=== PATIENT | female | born 1985 | race Caucasian/White ===

== ENCOUNTER 2017-12-07 18:17 | Emergency (ER) | payer OTHER ==
[2017-12-07] MEDS ORDERED: Ketorolac Tromethamine 30 MG/ML VIAL ONE (19:11)
[2017-12-07] MEDS ORDERED: diphenhydrAMINE 50 MG/ML VIAL ONE (19:11)
[2017-12-07] MEDS ORDERED: Prochlorperazine 10 MG/2 ML VIAL ONE (19:11)
--- NOTE | 2017-12-07 19:37 | CT ---
CT OF THE BRAIN WITHOUT CONTRAST: 12/07/17 INDICATION: Headache, bilateral frontal regions and shinto regions. COMPARISON: None. FINDINGS: No acute infarct, hemorrhage or hydrocephalus is present. The septum pellucidum and third ventricle a re midline. Skull and extracranial soft tissues are within normal limits. IMPRESSION: No acute intracranial abnormality. POS: JILLIAN
== END 2017-12-07 20:52 | disposition home or self-care (01) ==
LOC: SCSER 18:17
DX: R51 Headache (principal); R11.0 Nausea; K21.9 Gastro-esophageal reflux disease without esophagitis; F32.9 Major depressive disorder, single episode, unspecified; Z79.899 Other long term (current) drug therapy
CPT/HCPCS: 70450; 85652; 96365; 96375; J0780; J1200; J1885

== ENCOUNTER 2017-12-09 20:39 | Emergency (ER) | payer OTHER ==
[2017-12-09] MEDS ORDERED: methylPREDNISolone Sod Succ/PF 125 MG/2 ML VIAL ONE ×2 (21:39→22:58)
[2017-12-09] MEDS ORDERED: Ketorolac Tromethamine 30 MG/ML VIAL ONE (21:39)
[2017-12-09] MEDS ORDERED: Promethazine HCl 25 MG/ML VIAL ONE (21:39)
[2017-12-09] MEDS ORDERED: Prochlorperazine 10 MG/2 ML VIAL ONE (21:59)
== END 2017-12-09 23:42 | disposition home or self-care (01) ==
LOC: SCSER 20:39
DX: M31.6 Other giant cell arteritis (principal); G43.909 Migraine, unspecified, not intractable, without status migrainosus; K21.9 Gastro-esophageal reflux disease without esophagitis; F32.9 Major depressive disorder, single episode, unspecified; Z79.899 Other long term (current) drug therapy; Z79.52 Long term (current) use of systemic steroids
CPT/HCPCS: 96374; 96375; 96376; J0780; J1885; J2550; J2930

== ENCOUNTER 2017-12-12 10:05 | Day surgery (SDC) | payer OTHER ==
[2017-12-11 17:53] VITALS: BMI 37.1
[~2017-12-12 10:05] MED LIST: Dexamethasone 20 MG/5 ML VIAL ONE; Lidocaine 1% PF 5 ML VIAL ONE; Ondansetron HCl/PF 4 MG/2 ML Vial ONE; PROPOFOL 200 MG/20 ML VIAL ONE
[2017-12-12] MEDS ORDERED: Midazolam HCl 2 mg/2 ml Vial ONE (12:22)
[2017-12-12] MEDS ORDERED: Propofol 500 MG/50 ML VIAL ONE (12:22)
[2017-12-12] MEDS ORDERED: Fentanyl 100 MCG/2 ML VIAL ONE ×2 (12:22→14:29)
[2017-12-12] MEDS ORDERED: Lidocaine 1% (PF) 30 ML VIAL ONE (12:27)
[2017-12-12] MEDS ORDERED: Lidocaine 2% Jelly 5 ML TUBE ONE (12:35)
--- NOTE | 2017-12-12 16:34 | OP ---
PREOPERATIVE DIAGNOSIS: Right temporal headaches. POSTOPERATIVE DIAGNOSIS: Right temporal headaches. PROCEDURE PERFORMED: Right temporal artery biopsy. PROCEDURE IN DETAIL: After consent was obtained, the patient was identified and brought to the opera ting room and placed on the operating table in supine position. Laryngeal mask anesthesia was obtain ed, the patient was positioned for surgery. The area of intended surgery was infiltrated with 1% lid ocaine without epinephrine. We then prepped and draped the area and used a Doppler to identify and d elineate the course of the artery. The artery was delineated and some of the superficial hair was tr immed from the skin. We then made an incision down through skin and subcutaneous tissues and down to the level of the temporalis fascia. Just beneath the fascia, we encountered the artery and removed a 5 cm segment of artery. Hemoclips were used to tie off either end of the artery and sent in formal in for permanent evaluation. The wound was then closed in layers with Monocryl for the deep layers a nd rapidly absorbing gut for the skin. Dermabond was then placed. The patient was taken to recovery room in stable condition prior to discharge home.
[2017-12-12] MEDS ORDERED: methylPREDNISolone Acetate 40 mg/ml Vial IM SCH (17:00)
== END 2017-12-12 17:20 | disposition home or self-care (01) ==
LOC: SDC 10:05
PROVIDERS: ATTEND Specialist
PROC: 03BS0ZX Excision of Right Temporal Artery, Open Approach, Diagnostic (ICD-10-PCS; principal; 2017-12-12)
DX: M31.6 Other giant cell arteritis (principal); M26.629 Arthralgia of temporomandibular joint, unspecified side; D64.9 Anemia, unspecified; K21.9 Gastro-esophageal reflux disease without esophagitis; F32.9 Major depressive disorder, single episode, unspecified; F41.9 Anxiety disorder, unspecified; Z79.899 Other long term (current) drug therapy; Z88.2 Allergy status to sulfonamides
CPT/HCPCS: 88305; 88313; 96372; 96374; J1030; J1100; J2001; J2250; J2405; J2704; J3010

== ENCOUNTER 2018-05-24 17:44 | Emergency (ER) | payer OTHER ==
--- NOTE | 2018-05-24 19:02 | RAD ---
CERVICAL SPINE FOUR VIEWS: 05/24/18 HISTORY: Neck injury. FINDINGS: Vertebral body heights and alignment are maintained. Cervicothoracic junction is intact. No acute fra cture or dislocation. IMPRESSION: No acute osseous abnormalities are demonstrated. POS: FAHAD
== END 2018-05-24 19:16 | disposition home or self-care (01) ==
LOC: SCSER 17:44
DX: M54.2 Cervicalgia (principal); K21.9 Gastro-esophageal reflux disease without esophagitis; F32.9 Major depressive disorder, single episode, unspecified; Z79.899 Other long term (current) drug therapy; V43.92XA Unspecified car occupant injured in collision with other type car in traffic accident, initial encounter
CPT/HCPCS: 72040

== ENCOUNTER 2018-08-10 08:39 | Emergency (ER) | payer OTHER ==
[2018-08-10] MEDS ORDERED: diphenhydrAMINE 50 MG/ML VIAL ONE (09:21)
[2018-08-10] MEDS ORDERED: Metoclopramide HCl 10 MG/2 ML VIAL ONE (09:21)
[2018-08-10] MEDS ORDERED: Ketorolac Tromethamine 30 MG/ML VIAL ONE (09:21)
[2018-08-10] MEDS ORDERED: Magnesium 2 GM/50 ML BAG (IN WATER) ONE (10:27)
[2018-08-10] MEDS ORDERED: methylPREDNISolone Sod Succ/PF 125 MG/2 ML VIAL ONE (10:27)
== END 2018-08-10 11:40 | disposition home or self-care (01) ==
LOC: ERS 08:39
DX: G43.909 Migraine, unspecified, not intractable, without status migrainosus (principal); K21.9 Gastro-esophageal reflux disease without esophagitis; F32.9 Major depressive disorder, single episode, unspecified; Z79.899 Other long term (current) drug therapy
CPT/HCPCS: 96365; 96367; 96375; J1200; J1885; J2765; J2930

== ENCOUNTER 2019-04-16 09:30 | Outpatient (CLI) | payer OTHER ==
--- NOTE | 2019-04-16 10:58 | MRI ---
Brain MRI with and without contrast: 04/16/2019 COMPARISON: None HISTORY: Headaches TECHNIQUE: Multiplanar multisequence MR imaging of the brain obtained with and without contrast FINDINGS: The diffusion weighted imaging demonstrates no evidence for acute infarction. The axial gradient echo imaging demonstrates no evidence for intracranial hemorrhage. No midline shift or mass effect is seen. There is no ventricular enlargement. Arterial flow voids at the axial level of the skull base appear unremarkable on the T2-weighted imaging. There is a cluster of subcentimeter foci of increased T2 and FLAIR signal within the subcortical and deep white matter of the left frontal region, with 4-5 small foci measuring up to 5 mm. No enhancement is seen in this region. There is no mass effect. No additional foci of abnormal signal in tensity identified within the white matter. IMPRESSION: There is a nonspecific cluster of subcentimeter foci of increased T2 and FLAIR signal wit hin the subcortical and deep white matter of the left frontal lobe as detailed above. Perhaps this is related to an area of prior insult on the basis of prior ischemia or trauma. An atypical appearanc e of vasculitis or demyelinating disease is a less likely possibility. In order to exclude underlying neoplasia, short-term follow-up imaging in 3-6 months advised.
== END 2019-04-16 09:31 | disposition home or self-care (01) ==
LOC: BICMRI 09:30
PROVIDERS: ATTEND Family Medicine
DX: R51 Headache (principal)
CPT/HCPCS: 70553

== ENCOUNTER 2019-04-30 10:31 | Outpatient (CLI) | payer OTHER ==
--- NOTE | 2019-04-30 13:10 | ULT ---
RENAL ULTRASOUND: HISTORY: Hematuria. FINDINGS: Exam is somewhat limited due to body habitus. The right kidney measures 11.4 cm in length. There is mild right hydronephrosis. The left kidney measures 10.5 cm in length. The left kidney is unremarkable. The urinary bladder is distended and appears unremarkable. Pre-void bladder volume is recorded at 21 2 mL. Post-void bladder volume is recorded at 23 mL. IMPRESSION: Mild fullness of the right renal collecting structures, suggesting mild hydro. The renal ultrasound e xamination is otherwise unremarkable. POS: FAHAD
== END 2019-04-30 10:32 | disposition home or self-care (01) ==
LOC: BICULT 10:31
PROVIDERS: ATTEND Urology
DX: R31.29 Other microscopic hematuria (principal)
CPT/HCPCS: 76770

== ENCOUNTER 2019-05-07 08:08 | Outpatient (CLI) | payer OTHER ==
--- NOTE | 2019-05-07 10:38 | CT ---
CT ABDOMEN WITH AND WITHOUT CONTRAST: CT PELVIS WITH AND WITHOUT CONTRAST: HISTORY: Possible hydronephrosis. History of cystitis and urinary tract infection. COMPARISON: None. FINDINGS: ABDOMEN: The lung bases are clear. Normal heart size. No significant pericardial effusion. The descen ding thoracic aorta and abdominal aorta have a normal caliber. No periaortic fat stranding. Surgically absent gallbladder. Portal vein is patent. Liver, spleen, pancreas and adrenal glands have appropriate attenuation and enhancement. Minimal calc ification of the medial limb of the right adrenal gland. No gastrohepatic, retrocrural or periportal lymphadenopathy. There are a few scattered nonspecific, nonenlarged mesenteric lymph nodes. No mesenteric mass, free a ir or free fluid. Limited evaluation of the alimentary canal due to lack of oral contrast administration. No evidence o f bowel obstruction. The ileocecal junction is unremarkable. Normal caliber appendix. Scattered fecal material in a nondistended, nondilated colon. Diverticulosis without evidence of diverticulitis. There is no evidence of hydronephrosis, nephrolithiasis or perinephric fat stranding on the noncontra st images. The arterial phase images demonstrate symmetric enhancement of the kidneys. There are no e nhancing masses. Subcentimeter hypodensities in the left renal cortex are too small to characterize b ut are statistically favored to be cysts. The largest hypodensity measures 0.7 cm and has an attenuat ion coefficient of 7 Hounsfield units. There is evidence of a small right extrarenal pelvis. No signi ficant dilatation. On the delayed images there is symmetric excretion into the left and right intrare nal collecting system. Both intrarenal collecting systems are decompressed. Bilateral ureters have ap propriate attenuation. No evidence of ureterolithiasis, hydroureter or periureteral fat stranding. Co ntrast opacifies both ureters on the delayed images without filling defect. PELVIS: The urinary bladder is unremarkable. No filling defects in the dependent portion of the bladd er, which is filled with contrast. No pelvic mass, lymphadenopathy, free air or free fluid. The uterus and adnexal structures are unrema rkable. OSSEOUS STRUCTURES: There are no lytic or blastic lesions within the osseous structures. RIGHT BREAST: There is an incompletely evaluated, 2.6 cm, isodense mass with an attenuation coefficie nt of 27 Hounsfield units on the noncontrast images, 40 Hounsfield units on the arterial phase images and 51 Hounsfield units on the delayed images. The mass is well circumscribed and may represent a fi broadenoma. Better interrogation with a bilateral breast mammogram and right breast ultrasound is rec ommended. IMPRESSION: 1. No evidence of hydronephrosis. 2. Right external pelvis is noted. 3. Hypodensities in the left kidney which are too small to characterize but are statistically favored to be cysts. 4. Unremarkable left and right ureter. 5. Normal caliber appendix. 6. Unremarkable urinary bladder. 7. Right breast mass, as described above. Better interrogation with bilateral breast mammogram and ri ght breast ultrasound is recommended. CODE T POS: OFF
[2019-05-07] MEDS ORDERED: Iopamidol 370 76% 100 ML VIAL ONE (14:51)
== END 2019-05-07 08:09 | disposition home or self-care (01) ==
LOC: CT 08:08
PROVIDERS: ATTEND Urology
DX: N30.10 Interstitial cystitis (chronic) without hematuria (principal); N13.39 Other hydronephrosis; K76.89 Other specified diseases of liver; N63.10 Unspecified lump in the right breast, unspecified quadrant
CPT/HCPCS: 74178; Q9967

== ENCOUNTER 2019-05-21 08:50 | Outpatient (CLI) | payer OTHER ==
--- NOTE | 2019-05-21 11:54 | MMO ---
Bilateral MAMMO Bilat Diag [facility]. CLINICAL HISTORY: Patient is 33 years old and is seen for diagnostic exam. The patient has no family history of breast cancer. The patient has no personal history of cancer. VIEWS: The views performed were: bilateral craniocaudal with tomosynthesis; bilateral mediolateral oblique with tomosynthesis; bilateral mediolateral with tomosynthesis; left craniocaudal; and left mediolateral. FILMS COMPARED: The present examination has been compared to a prior imaging study performed at [facility] on 05/21/2019. This study has been interpreted with the assistance of computer-aided detection. MAMMOGRAM FINDINGS: There are scattered fibroglandular densities. There is an oval mass at the 6 o'clock position of the right breast measuring 2.5cm with punctate internal calcifications. Focused ultrasound reveals a solid mass, biopsy is recommended. There is an asymmetric density in the upper outer right breast. Focused ultrasound demonstrates a non-specific hypoechoic solid lesion measuring 9mm. Biopsy is recommended. There is a mildly dilated duct in the left retroareolar region. There is an asymmetric density within the upper outer left breast with no sonographic correlate. Recommend follow up diagnostic mammogram in 6 months. IMPRESSION: FINDING IN THE RIGHT BREAST IS SUSPICIOUS. BIOPSY IS RECOMMENDED. Recommend biopsy of both masses with the right breast. Recommend 6 month follow up diagnostic mammogram of the left breast upper outer asymmetric density. THE RESULTS OF THIS EXAM WERE SENT TO THE PATIENT. ACR BI-RADS Category 4 - Suspicious abnormality - biopsy should be considered MAMMOGRAPHY NOTE: 1. A negative mammogram report should not delay a biopsy if a dominant of clinically suspicious mass is present. 2. Approximately 10% to 15% of breast cancers are not detected by mammography. 3. Adenosis and dense breasts may obscure an underlying neoplasm. Reported by: CHRISTOFER MARIEE MD Electonically Signed: [id number]
--- NOTE | 2019-05-21 13:18 | ULT ---
BILATERAL BREAST ULTRASOUND: 05/21/2019 HISTORY: Abnormal CT examination demonstrated a mass within the right breast on 05/07/2019 thus bilateral diag nostic mammography was performed. Diagnostic mammography demonstrates asymmetric density in the bilateral upper outer quadrants as well as a round mass in the left retroareolar region and an oval 2.5 cm mass within the inferior right br east. COMPARISON: None. FINDINGS: At the 6 o'clock position of the right breast inferiorly there is a nonspecific heterogeneously hypoe choic, solid lesion with punctate internal calcifications measuring 2.7 x 0.9 x 2.2 cm. This correlat es with the lesion seen on prior CT. In the upper outer right breast there is a nonspecific angulated, hypoechoic mass measuring approxima tely 5 x 10 x 7 mm, correlating with the asymmetric density in the upper outer right breast seen on m ammography. Posterior to the nipple there are a few mildly prominent ducts, benign in nature. No sonographic correlate is seen for the asymmetric density within the upper outer aspect of the left breast. IMPRESSION: BI-RADS 4 - suspicious abnormality. Recommend ultrasound guided core biopsy of the upper outer right breast mass and the inferior right b reast mass at the 6 o'clock position. With respect to the findings on the left a follow-up diagnostic mammogram in six months is advised. CODE T POS: OFF
== END 2019-05-21 08:51 | disposition home or self-care (01) ==
LOC: BICMAMMO 08:50
PROVIDERS: ATTEND Family Medicine
DX: N63.10 Unspecified lump in the right breast, unspecified quadrant (principal)
CPT/HCPCS: 77066; G0279

== ENCOUNTER 2019-05-23 19:30 | Outpatient (CLI) | payer OTHER | END 2019-05-23 19:31 | disposition home or self-care (01) | LOC: SLEEPLAB 19:30 | PROVIDERS: ATTEND Family Medicine | DX: G47.33 Obstructive sleep apnea (adult) (pediatric) (principal); R53.83 Other fatigue; E66.9 Obesity, unspecified; F41.9 Anxiety disorder, unspecified; F32.9 Major depressive disorder, single episode, unspecified | CPT/HCPCS: 95811 ==

== ENCOUNTER → 2019-05-26 | Day surgery (SDC) | payer OTHER ==
--- NOTE | 2019-05-26 14:18 | ULT ---
ULTRASOUND GUIDED CORE BIOPSY RIGHT BREAST 10 O'CLOCK POSITION: ULTRASOUND GUIDED CORE BIOPSY RIGHT BREAST 6 O'CLOCK POSITION: 05/26/2019 HISTORY: Two masses are noted within the right breast for which ultrasound guided core biopsy was recommended. FINDINGS: Informed consent obtained prior to the procedure. The skin overlying the right breast at the 10 o'clock and 6 o'clock positions was prepped and draped in the normal sterile fashion and initially the skin was anesthetized over the 10 o'clock position. T he oval. nonspecific, hypoechoic lesion noted on prior examination at the 10 o'clock position is agai n noted. With direct sonographic guidance, three 12 gauge core biopsies were obtained of this mass an d a post biopsy clip was placed. Then the skin overlying the 6 o'clock position was anesthetized with 1% buffered Lidocaine. The 2.8 x 1.1 cm hypoechoic mass was again visualized. Three 12 gauge core bi opsies were obtained. A post biopsy clip was placed. Both post biopsy clips were confirmed to be in a proper position with post biopsy mammography. The patient tolerated the procedure well. IMPRESSION: Successful ultrasound guided core biopsy of masses within the right breast, one at the 6 o'clock posi tion and one at the 10 o'clock position. POS: OFF
--- NOTE | 2019-05-26 14:42 | MMO ---
Right Breast MAMMO Unilat Diag [facility]. CLINICAL HISTORY: Patient is 33 years old and is seen for breast biopsy. The patient has no family history of breast cancer. The patient has no personal history of cancer. VIEWS: The views performed were: right craniocaudal and right mediolateral oblique. FILMS COMPARED: The present examination has been compared to a prior imaging study performed at [facility] on 05/21/2019. This study has been interpreted with the assistance of computer-aided detection. MAMMOGRAM FINDINGS: There are scattered fibroglandular densities. There are two post-biopsy clips in proper location, one at the 10 oc'clock position and one at the 6 o'clock position. Pathology pending. IMPRESSION: FINDING IN THE RIGHT BREAST IS SUSPICIOUS. BIOPSY IS RECOMMENDED. US guided core biopsy has been performed and pathology is pending. THE RESULTS OF THIS EXAM WERE SENT TO THE PATIENT. ACR BI-RADS Category 4 - Suspicious abnormality - biopsy should be considered MAMMOGRAPHY NOTE: 1. A negative mammogram report should not delay a biopsy if a dominant of clinically suspicious mass is present. 2. Approximately 10% to 15% of breast cancers are not detected by mammography. 3. Adenosis and dense breasts may obscure an underlying neoplasm. Reported by: CHRISTOFER MARIEE MD Electonically Signed: [id number]
== END ==
LOC: BICULT 12:47
PROVIDERS: ATTEND Family Medicine
PROC: 0H9T3ZX Drainage of Right Breast, Percutaneous Approach, Diagnostic (ICD-10-PCS; principal; 2019-05-26)
DX: D24.1 Benign neoplasm of right breast (principal); N60.91 Unspecified benign mammary dysplasia of right breast; Z88.2 Allergy status to sulfonamides; Z88.8 Allergy status to other drugs, medicaments and biological substances
CPT/HCPCS: 19083; 19084; 88305; 88341; 88342

== ENCOUNTER 2019-06-26 09:36 | Emergency (ER) | payer OTHER ==
[2019-06-26] MEDS ORDERED: Ketorolac Tromethamine 30 MG/ML VIAL ONE (09:52)
== END 2019-06-26 10:10 | disposition home or self-care (01) ==
LOC: SCSER 09:36
DX: M25.511 Pain in right shoulder (principal); M25.512 Pain in left shoulder; K21.9 Gastro-esophageal reflux disease without esophagitis; F41.9 Anxiety disorder, unspecified; F32.9 Major depressive disorder, single episode, unspecified; Z79.899 Other long term (current) drug therapy; V49.9XXA Car occupant (driver) (passenger) injured in unspecified traffic accident, initial encounter
CPT/HCPCS: 96372; 99283; J1885

== ENCOUNTER 2019-07-02 06:46 | Day surgery (SDC) | payer OTHER ==
[2019-07-02] MEDS ORDERED: Bupivacaine 0.25% HCL 30 ML VIAL ONE (06:52)
[2019-07-02] MEDS ORDERED: Lidocaine 1% w/Epinephrine 1:100K 20 ML VIAL ONE (06:52)
[2019-07-02 08:10] LABS: #Eosinphils 0.2 thou/uL (0.0-0.7); #Lymphocytes 1.2 thou/uL (1.20-3.40); #Monocytes 0.4 thou/uL (0.11-0.59); #Neutrophils 3.9 thou/uL (1.40-6.50); %Basophils 0.3 % (0.0-1.0); %Eosinophils 3.1 % (0.0-10.0); %Lymphocytes 20.9 % (21.0-51.0); %Monocytes 7.6 % (0.0-10.0); %Neutrophils 68.2 % (42.0-75.0); Hemoglobin 12.3 g/dL (12.0-16.0); Mean Corpuscular HGB CONC 32.6 g/dL (32.0-36.0); Mean Corpuscular Hemoglobin 26.1 pg (27.0-31.0); Mean Corpuscular Volume 80.2 fL (78.0-98.0); Mean Platelet Volume 7.3 fL (7.4-10.4); Platelet Count 325 thou/uL (130-400); Red Blood Cell (RBC) Count 4.72 mill/uL (4.20-5.40); White Blood Cell (WBC) Count 5.7 thou/uL (4.8-10.8)
[2019-07-02 08:20] LABS: BHCG - Serum Negative (NEGATIVE); Pregs Control Background? CLEAR/WHITE (CLR/WHITE); Pregs Control Bar Appear? YES (CONTROL BAR)
[2019-07-02] MEDS ORDERED: Midazolam HCl 2 mg/2 ml Vial ONE (08:23)
[2019-07-02 08:24] LABS: Anion Gap 10 mmol/L (10-20); BUN (Urea Nitrogen) 6 mg/dL (7.0-18.7); Calc. Creatinine Clearance 0 mL/min (70-130); Calcium 9.4 mg/dL (7.8-10.44); Carbon Dioxide 26 mmol/L (22-29); Chloride 105 mmol/L (98-107); Estimated GFR-MDRD 81; Glucose 102 mg/dL (70-105); Potassium 4.1 mmol/L (3.5-5.1); Sodium 137 mmol/L (136-145)
[2019-07-02] MEDS ORDERED: Fentanyl 100 MCG/2 ML VIAL ONE (08:24)
--- NOTE | 2019-07-02 10:02 | MMO ---
Mammographic guided needle localization right breast mass and localization clip Surgical specimen mammography right breast mass HISTORY: Right breast mass with positive pathology. FINDINGS: After explaining the procedure and answering all questions, the mass and localization clip at the superior lateral aspect of the right breast was again visualized. Sterile technique, buffered local anesthesia, mammographic guidance, and a superior approach were used to carefully adva nce a 5 cm [place] needle and wire to the posterior margin of the mass, with the hook deployed anteriorly. The mass is centered 1.8 cm from the needle tip. Images were marked. Surgical specimen mammography shows the localization clip, wire, and mass overlying the tissue specim en. Findings were called to Dr. Webb in the OR at the time of the exam. IMPRESSION: Technically successful needle localization right breast mass.
[2019-07-02] MEDS ORDERED: Dexamethasone 20 MG/5 ML VIAL ONE (12:01)
[2019-07-02] MEDS ORDERED: Ondansetron PF 4 MG/2 ML Vial ONE (12:01)
[2019-07-02] MEDS ORDERED: Metoclopramide HCl 10 MG/2 ML VIAL ONE (12:01)
[2019-07-02] MEDS ORDERED: PROPOFOL 200 MG/20 ML VIAL ONE (12:01)
[2019-07-02] MEDS ORDERED: Lidocaine 1% PF 5 ML VIAL ONE (12:01)
== END 2019-07-02 11:55 | disposition home or self-care (01) ==
LOC: SDC 06:46
PROVIDERS: ATTEND Surgery
PROC: 0HBT0ZZ Excision of Right Breast, Open Approach (ICD-10-PCS; principal; 2019-07-02)
DX: N62 Hypertrophy of breast (principal); F41.9 Anxiety disorder, unspecified; F32.9 Major depressive disorder, single episode, unspecified; K21.9 Gastro-esophageal reflux disease without esophagitis; D64.9 Anemia, unspecified; J30.2 Other seasonal allergic rhinitis; Z79.899 Other long term (current) drug therapy; Z88.2 Allergy status to sulfonamides; Z88.8 Allergy status to other drugs, medicaments and biological substances
CPT/HCPCS: 19281; 36415; 76098; 80048; 84703; 85025; 88307; J0131; J0690; J1100; J2001; J2250; J2405; J2704; J2765; J3010; S0020

== ENCOUNTER 2020-09-26 10:25 | Outpatient (CLI) | payer OTHER | END 2020-09-26 10:26 | disposition home or self-care (01) | LOC: BICMRI 10:25 | PROVIDERS: ATTEND Internal Medicine Hematology & Oncology | DX: N60.89 Other benign mammary dysplasias of unspecified breast (principal); D50.0 Iron deficiency anemia secondary to blood loss (chronic) | CPT/HCPCS: A9577; C8908 ==

== ENCOUNTER 2020-11-11 08:11 | Outpatient (CLI) | payer OTHER ==
[2020-11-11 21:04] LABS: SARS-CoV-2 PCR by NAA Not Detected (NotDetected)
== END 2020-11-11 08:12 | disposition home or self-care (01) ==
LOC: LABBT 08:11
PROVIDERS: ATTEND Internal Medicine Gastroenterology
DX: Z01.812 Encounter for preprocedural laboratory examination (principal); K21.9 Gastro-esophageal reflux disease without esophagitis; Z20.822 Contact with and (suspected) exposure to COVID-19
CPT/HCPCS: 87635; U0003; U0005

== ENCOUNTER 2020-11-15 08:47 | Day surgery (SDC) | payer OTHER ==
[2020-11-14 10:37] VITALS: BMI 38.9
[2020-11-15 10:01] LABS: Pregnancy Test - Urine (BHCG) Negative (Negative); Pregu Control Background? CLEAR/WHITE (CLR/WHITE); Pregu Control Bar Appear? YES (CONTROL BAR); Specific Gravity 1.017 (1.002-1.036)
[2020-11-15] MEDS ORDERED: PROPOFOL 200 MG/20 ML VIAL ONE (10:37)
== END 2020-11-15 12:40 | disposition home or self-care (01) ==
LOC: SDC 08:47
PROVIDERS: ATTEND Internal Medicine Gastroenterology
PROC: 0D757ZZ Dilation of Esophagus, Via Natural or Artificial Opening (ICD-10-PCS; principal; 2020-11-15)
PROC: 0DB58ZX Excision of Esophagus, Via Natural or Artificial Opening Endoscopic, Diagnostic (ICD-10-PCS; principal; 2020-11-15)
DX: K31.7 Polyp of stomach and duodenum (principal); K21.9 Gastro-esophageal reflux disease without esophagitis; E66.9 Obesity, unspecified; Z68.38 Body mass index [BMI] 38.0-38.9, adult; Z79.899 Other long term (current) drug therapy; Z88.2 Allergy status to sulfonamides; Z88.8 Allergy status to other drugs, medicaments and biological substances
CPT/HCPCS: 81025; 88305; J2704

== ENCOUNTER 2021-05-15 09:40 | Outpatient (CLI) | payer OTHER | END 2021-05-15 09:41 | disposition home or self-care (01) | LOC: BICMAMMO 09:40 | PROVIDERS: ATTEND Internal Medicine Hematology & Oncology | DX: N60.89 Other benign mammary dysplasias of unspecified breast (principal) | CPT/HCPCS: 77066; A9577; C8908; G0279 ==

== ENCOUNTER 2021-05-23 19:27 | Emergency (ER) | payer OTHER ==
[2021-05-23] MEDS ORDERED: Ketorolac Tromethamine 30 MG/ML VIAL ONE (19:52)
[2021-05-23] MEDS ORDERED: Acetaminophen 500 MG TAB ONE (19:52)
== END 2021-05-23 20:50 | disposition home or self-care (01) ==
LOC: ERS 19:27
DX: S39.012A Strain of muscle, fascia and tendon of lower back, initial encounter (principal); K21.9 Gastro-esophageal reflux disease without esophagitis; Z79.899 Other long term (current) drug therapy; W22.8XXA Striking against or struck by other objects, initial encounter
CPT/HCPCS: 72100; 96372; J1885

== ENCOUNTER 2022-05-16 09:54 | Outpatient (CLI) | payer OTHER | END 2022-05-16 09:55 | disposition home or self-care (01) | LOC: BICMAMMO 09:54 | PROVIDERS: ATTEND Internal Medicine Hematology & Oncology | DX: Z12.31 Encounter for screening mammogram for malignant neoplasm of breast (principal) | CPT/HCPCS: 77063; 77067 ==

== ENCOUNTER 2023-03-27 12:31 | Outpatient (CLI) | payer OTHER | END 2023-03-27 12:32 | disposition home or self-care (01) | LOC: BICULT 12:31 | PROVIDERS: ATTEND Internal Medicine Nephrology | DX: N18.1 Chronic kidney disease, stage 1 (principal) | CPT/HCPCS: 76770 ==

== ENCOUNTER 2023-05-22 12:01 | Emergency (ER) | payer OTHER ==
[2023-05-22 14:55] LABS: Bacteria/HPF None Seen HPF (None Seen); Bilirubin Negative (Negative); Blood, Urine Negative (Negative); CAUTI Indications for Culture Pregnancy; Clarity Clear (Clear); Glucose, Urine (Dipstick) Normal (Negative); Ketone, Urine Negative (Negative); Leukocyte Negative Leu/uL (Negative); Nitrite Negative (Negative); Protein, Urine (Dipstick) Negative (Neg-Trace); RBC/HPF 0-3 HPF (0-3); Specific Gravity, Urine 1.009 (1.002-1.036); Squamous Epithelial 0-3 HPF (0-3); Urobilinogen Normal mg/dL (Less than 2); WBC/HPF None Seen HPF (0-3)
[2023-05-22 14:58] LABS: Urine Culture Reflex Yes Yes
== END 2023-05-22 15:32 | disposition home or self-care (01) ==
LOC: ERS 12:01
DX: O20.8 Other hemorrhage in early pregnancy (principal); O99.611 Diseases of the digestive system complicating pregnancy, first trimester; K21.9 Gastro-esophageal reflux disease without esophagitis; Z3A.01 Less than 8 weeks gestation of pregnancy
CPT/HCPCS: 76801; 81001; 87086

== ENCOUNTER 2023-07-31 09:23 | Outpatient (CLI) | payer OTHER | END 2023-07-31 09:24 | disposition home or self-care (01) | LOC: BICMAMMO 09:23 | PROVIDERS: ATTEND Advanced Practice Midwife | DX: N63.10 Unspecified lump in the right breast, unspecified quadrant (principal); D24.1 Benign neoplasm of right breast | CPT/HCPCS: 77066; G0279 ==

== ENCOUNTER 2024-03-26 10:36 | Day surgery (SDC) | payer OTHER ==
[2024-03-25 12:45] VITALS: BMI 38.7
[2024-03-26] MEDS ORDERED: fentaNYL 50 mcg/mL 1 mL Vial ONE ×2 (11:20→13:56)
[2024-03-26] MEDS ORDERED: Bupivacaine PF 0.5% 30 ML VIAL ONE (11:20)
[2024-03-26] MEDS ORDERED: Midazolam HCl 2 mg/2 ml Vial ONE (11:20)
[2024-03-26] MEDS ORDERED: EPINEPHrine 1 MG/ML VIAL ONE (11:20)
[2024-03-26 11:46] LABS: Hematocrit 36.5 % (36.0-47.0); Hemoglobin 11.8 g/dL (12.0-16.0); Mean Corpuscular HGB CONC 32.3 g/dL (32.0-36.0); Mean Corpuscular Hemoglobin 27.4 pg (27.0-31.0); Mean Corpuscular Volume 84.9 fL (78.0-98.0); Mean Platelet Volume 9.5 fL (7.4-10.4); Platelet Count 326 10x3/uL (130-400); RBC Distribution Width 12.6 % (11.5-14.5)
[2024-03-26] MEDS ORDERED: CEFAZOLIN 2 GM VIAL ONE (12:14)
[2024-03-26] MEDS ORDERED: Sodium Chloride 0.9% 100 ML ONE (12:14)
[2024-03-26] MEDS ORDERED: Scopolamine 1 mg/72 hour Patch ONE (12:49)
[2024-03-26] MEDS ORDERED: SUCCINYLCHOLINE/SOD CL,ISO/PF 200 MG/10 ML SYRINGE FS ONE (12:51)
[2024-03-26] MEDS ORDERED: Dexamethasone 4 mg/ml Vial ONE (13:13)
[2024-03-26] MEDS ORDERED: Ondansetron PF 4 MG/2 ML Vial ONE (13:13)
[2024-03-26] MEDS ORDERED: PROPOFOL 20 ML ONE (13:38)
[2024-03-26 13:53] LABS: Anion Gap 13 mmol/L (10-20); BUN (Urea Nitrogen) 15 mg/dL (7.0-18.7); Calc. Creatinine Clearance 191 mL/min (70-130); Calcium 9.4 mg/dL (7.8-10.44); Carbon Dioxide 24 mmol/L (22-29); Chloride 108 mmol/L (98-107); Estimated GFR 114; Glucose 88 mg/dL (70-105); Potassium 4.1 mmol/L (3.5-5.1); Sodium 141 mmol/L (136-145)
== END 2024-03-26 15:59 | disposition home or self-care (01) ==
LOC: SDC 10:36
PROVIDERS: ATTEND Orthopaedic Surgery
PROC: 0PSH04Z Reposition Right Radius with Internal Fixation Device, Open Approach (ICD-10-PCS; principal; 2024-03-26)
DX: S52.301P Unspecified fracture of shaft of right radius, subsequent encounter for closed fracture with malunion (principal); K21.9 Gastro-esophageal reflux disease without esophagitis; F32.A Depression, unspecified; Z79.899 Other long term (current) drug therapy; X58.XXXD Exposure to other specified factors, subsequent encounter
CPT/HCPCS: 80048; 85027; C1713; J0171; J0665; J1100; J2250; J2405; J2704; J3010

== ENCOUNTER 2024-07-27 20:19 | Emergency (ER) | payer OTHER ==
[2024-07-27] MEDS ORDERED: Ibuprofen 200 MG TAB ONE (22:04)
== END 2024-07-27 22:34 | disposition home or self-care (01) ==
LOC: ERS 20:19
DX: S01.511A Laceration without foreign body of lip, initial encounter (principal); M25.562 Pain in left knee; W01.198A Fall on same level from slipping, tripping and stumbling with subsequent striking against other object, initial encounter; Y92.009 Unspecified place in unspecified non-institutional (private) residence as the place of occurrence of the external cause
CPT/HCPCS: 12011; 99283

== ENCOUNTER 2024-08-25 17:57 | Emergency (ER) | payer OTHER | END 2024-08-25 22:07 | disposition left against medical advice (07) | LOC: ERS 17:57 | DX: Z53.21 Procedure and treatment not carried out due to patient leaving prior to being seen by health care provider (principal) ==